=== PATIENT | male | born 1985 | race Caucasian/White ===

== ENCOUNTER 2017-09-29 12:05 | Emergency (ER) | payer OTHER ==
[2017-09-29] MEDS: DIPHTH/TET/ACEL PERTUSS (ADULT) 0.5 ML VIAL IM* (15:22)
[2017-09-29] MEDS: ACETAMINOPHEN 500 MG TAB PO (15:22)
== END 2017-09-29 16:35 | disposition home or self-care (01) ==
LOC: FTE 12:05
DX: S61.210A Laceration without foreign body of right index finger without damage to nail, initial encounter (principal); W25.XXXA Contact with sharp glass, initial encounter; Y92.9 Unspecified place or not applicable; Z23 Encounter for immunization
CPT/HCPCS: 12001; 73140; 90471; 90715; 99283-25